=== PATIENT | male | born 1955 | race Two or more races ===

== ENCOUNTER 2023-01-22 03:39 | Emergency (ER) | payer OTHER ==
[~2023-01-22] VITALS: Ht 165.1 cm; Wt 80.9 kg
[2023-01-22 04:48] VITALS: BP 159/95
[2023-01-22 05:43] LABS: Basophils # (auto) 0.1 10 ^3/uL (0-0.2); Basophils % (auto) 0.8 % (0.0-2.0); Eosinophils # (auto) 0.4 10 ^3/uL (0-0.8); Eosinophils % (auto) 5.8 % (0.0-7.0); Hematocrit 41.4 % (41.0-53.0); Hemoglobin 14.3 g/dL (13.5-17.5); Lymphocytes # (auto) 1.7 10 ^3/uL (0.4-5.4); Lymphocytes % (auto) 27.2 % (10.0-50.0); Mean Corpuscular Hemoglobin 30.8 pg (28.0-32.0); Mean Corpuscular Hgb Conc. 34.5 g/dL (32.0-36.0); Mean Corpuscular Volume 89.4 fL (80.0-100.0); Monocytes # (auto) 0.4 10 ^3/uL (0-1.3); Monocytes % (auto) 6.4 % (0.0-12.0); Neutrophils # (auto) 3.8 10 ^3/uL (1.6-8.6); Neutrophils % (auto) 59.8 % (37.0-80.0); Red Blood Cells 4.63 10^6/uL (4.5-5.90); Red Cell Distribution Width 13.1 % (11.8-14.3); White Blood Cell 6.3 10^3/uL (4.4-10.8)
[2023-01-22 06:10] LABS: Albumin 2.9 g/dL (3.4-5.0); BUN/Creatinine Ratio 17.4; Calcium 8.3 mg/dL (8.5-10.1)
[2023-01-22 06:13] LABS: Bilirubin, Total 0.4 mg/dL (0.2-1.0); Total Protein 6.2 g/dL (6.4-8.2)
[2023-01-22 06:40] LABS: Urine Bacteria NONE SEEN /hpf (None Seen); Urine Blood TRACE /uL (Negative); Urine Specific Gravity 1.021 (1.001-1.035); Urine WBC 2 /hpf (0 - 3)
[2023-01-22] MEDS ORDERED: AZIT1POW PO (08:28)
== END 2023-01-22 08:27 | disposition home or self-care (01) ==
LOC: ER 03:39
DX: M54.6 Pain in thoracic spine (principal); R35.0 Frequency of micturition; E11.65 Type 2 diabetes mellitus with hyperglycemia; J20.9 Acute bronchitis, unspecified; E78.5 Hyperlipidemia, unspecified; I10 Essential (primary) hypertension; Z90.49 Acquired absence of other specified parts of digestive tract
CPT/HCPCS: 36415; 71046; 80053; 81001; 83880; 84484; 85025; 93005

== ENCOUNTER 2023-02-02 13:12 | Inpatient (IN) | payer OTHER ==
[~2023-02-02] VITALS: Ht 165.1 cm; Wt 90.6 kg
[~2023-02-02 13:12] MED LIST: AZIT1POW PO
[2023-02-02] MEDS ORDERED: cloNIDine HCL 0.1 MG TAB PO ONE (13:45)
[2023-02-02 14:13] LABS: Basophils # (auto) 0 10 ^3/uL (0-0.2); Basophils % (auto) 0.7 % (0.0-2.0); Eosinophils # (auto) 0.2 10 ^3/uL (0-0.8); Eosinophils % (auto) 3.5 % (0.0-7.0); Hemoglobin 14.6 g/dL (13.5-17.5); Lymphocytes # (auto) 1.4 10 ^3/uL (0.4-5.4); Lymphocytes % (auto) 23.1 % (10.0-50.0); Mean Corpuscular Hemoglobin 30.7 pg (28.0-32.0); Mean Corpuscular Hgb Conc. 34.8 g/dL (32.0-36.0); Mean Corpuscular Volume 88.2 fL (80.0-100.0); Monocytes # (auto) 0.3 10 ^3/uL (0-1.3); Monocytes % (auto) 4.6 % (0.0-12.0); Neutrophils # (auto) 4.3 10 ^3/uL (1.6-8.6); Neutrophils % (auto) 68.1 % (37.0-80.0); Nucleated Red Blood Cells % 0.4 %; Red Blood Cells 4.76 10^6/uL (4.5-5.90); Red Cell Distribution Width 13.1 % (11.8-14.3); White Blood Cell 6.3 10^3/uL (4.4-10.8)
[2023-02-02 14:37] LABS: BUN/Creatinine Ratio 14.6; Bilirubin, Total 0.4 mg/dL (0.2-1.0); Calcium 8.2 mg/dL (8.5-10.1)
[2023-02-02] MEDS ORDERED: MORPHINE SULFATE INJ 2 MG/ml SYRG IV PRN (15:15)
[2023-02-02] MEDS ORDERED: SODIUM CHLORIDE 0.9% 1,000 ML IV SCH (15:15)
[2023-02-02] MEDS ORDERED: NITROGLYCERIN 0.4 MG SL TAB SL PRN (15:15)
[2023-02-02] MEDS ORDERED: ACETAMINOPHEN 325 MG TAB PO PRN (15:15)
[2023-02-02] MEDS ORDERED: PANTOPRAZOLE 40 MG/10 ML VIAL INJ IV ONE (15:30)
[2023-02-02] MEDS ORDERED: FUROSEMIDE 20 MG/2 ML VIAL IV ONE (15:30)
[2023-02-02] MEDS ORDERED: DEXTROSE (50%) 50ML SYRG IV PRN (15:30)
[2023-02-02] MEDS ORDERED: TERB250T66 PO (15:33)
[2023-02-02] MEDS ORDERED: FENO145T27 PO (15:33)
[2023-02-02] MEDS ORDERED: BACL20TA PO (15:33)
[2023-02-02] MEDS ORDERED: AZIT250T9 PO (15:33)
[2023-02-02] MEDS ORDERED: PREG-111 PO (15:33)
[2023-02-02] MEDS ORDERED: LISI40TA11 (15:33)
[2023-02-02] MEDS ORDERED: AMLO-496 PO (15:33)
[2023-02-02] MEDS ORDERED: METF-372 PO (15:33)
[2023-02-02] MEDS ORDERED: CHOL1CAP21 PO (15:33)
[2023-02-02 16:05] LABS: Cholesterol 226 mg/dL (< 200)
[2023-02-02 16:08] LABS: HDL Cholesterol 76 mg/dL (40-59); LDL Cholesterol 120 mg/dL (< 100); Triglycerides 345 mg/dL (< 150)
[2023-02-02] MEDS ORDERED: Cholecalciferol (Vitamin D3) 1 CAP PO SCH (17:00)
[2023-02-02] MEDS: ACCU-CHEK COMFORT CURVE STRIP VI SCH ×2 (17:18→22:00)
[2023-02-02] MEDS: InsuLIN REG 1unit/0.01ml Soln (100units/ml) SC SCH ×2 (17:19→22:50)
[2023-02-02] MEDS: PREGABALIN CAPSULE 75 MG CAP PO SCH (22:45)
[2023-02-02] MEDS: hydrALAZINE HCL 20 MG/ML VL IV PRN (22:45)
[2023-02-02] MEDS: HEPARIN SODIUM (PORCINE) 5000 UNITS/ML 1ML VIAL SC SCH (22:49)
[2023-02-03 00:53] LABS: Urine Bacteria FEW /hpf (None Seen); Urine Blood Negative /uL (Negative); Urine Hyaline Cast FEW /lpf (0 - 2); Urine Mucus FEW (None Seen); Urine Sperm PRESENT /hpf (None Seen); Urine WBC 2 /hpf (0 - 3)
[2023-02-03 06:32] LABS: Basophils # (auto) 0.1 10 ^3/uL (0-0.2); Eosinophils # (auto) 0.4 10 ^3/uL (0-0.8); Eosinophils % (auto) 7.1 % (0.0-7.0); Hematocrit 39.4 % (41.0-53.0); Hemoglobin 13.5 g/dL (13.5-17.5); Lymphocytes # (auto) 1.7 10 ^3/uL (0.4-5.4); Lymphocytes % (auto) 33.3 % (10.0-50.0); Mean Corpuscular Hemoglobin 30.5 pg (28.0-32.0); Mean Corpuscular Hgb Conc. 34.4 g/dL (32.0-36.0); Mean Corpuscular Volume 88.8 fL (80.0-100.0); Monocytes # (auto) 0.4 10 ^3/uL (0-1.3); Monocytes % (auto) 7.5 % (0.0-12.0); Neutrophils # (auto) 2.7 10 ^3/uL (1.6-8.6); Neutrophils % (auto) 51.1 % (37.0-80.0); Nucleated Red Blood Cells % 0.2 %; Red Blood Cells 4.44 10^6/uL (4.5-5.90); Red Cell Distribution Width 13.1 % (11.8-14.3); White Blood Cell 5.2 10^3/uL (4.4-10.8)
[2023-02-03] MEDS: ACCU-CHEK COMFORT CURVE STRIP VI SCH ×4 (06:50→21:56)
[2023-02-03] MEDS: InsuLIN REG 1unit/0.01ml Soln (100units/ml) SC SCH ×4 (06:50→21:57)
[2023-02-03 06:59] LABS: Albumin 2.7 g/dL (3.4-5.0); Calcium 7.8 mg/dL (8.5-10.1); Potassium 3.5 mmol/L (3.5-5.1)
[2023-02-03 07:04] LABS: Bilirubin, Total 0.4 mg/dL (0.2-1.0); Total Protein 5.4 g/dL (6.4-8.2)
[2023-02-03] MEDS: PREGABALIN CAPSULE 75 MG CAP PO SCH ×2 (09:33→21:52)
[2023-02-03] MEDS: PANTOPRAZOLE 40 MG/10 ML VIAL INJ IV SCH (09:34)
[2023-02-03] MEDS: amLODIPine BESYLATE 5 MG TAB PO SCH (09:34)
[2023-02-03] MEDS: HEPARIN SODIUM (PORCINE) 5000 UNITS/ML 1ML VIAL SC SCH ×2 (09:35→21:56)
[2023-02-03] MEDS: FENOFIBRATE PO SCH (09:35)
[2023-02-03] MEDS ORDERED: ENOXAPARIN SOD 40 MG/0.4 ML SYRINGE SC SCH (10:00)
[2023-02-03 13:24] LABS: Protein, Urine 401.7 mg/dL (0.0-11.9)
[2023-02-03] MEDS: CLINDAMYCIN 600MG IV 50 ML IV SCH ×2 (14:33→21:57)
[2023-02-03 15:30] VITALS: BP 169/89
[2023-02-03 15:39] VITALS: BP 169/89
[2023-02-03] MEDS: hydrALAZINE HCL 20 MG/ML VL IV PRN (16:30)
[2023-02-03] MEDS: HYDROcodone-ACET 5/325MG TAB PO PRN (16:33)
[2023-02-03 22:00] VITALS: BP 161/83
[2023-02-04 05:00] VITALS: BP 166/90
[2023-02-04] MEDS: CLINDAMYCIN 600MG IV 50 ML IV SCH ×3 (05:42→21:57)
[2023-02-04] MEDS: HYDROcodone-ACET 5/325MG TAB PO PRN ×2 (06:06→19:55)
[2023-02-04] MEDS: InsuLIN REG 1unit/0.01ml Soln (100units/ml) SC SCH ×4 (06:42→22:10)
[2023-02-04] MEDS: ACCU-CHEK COMFORT CURVE STRIP VI SCH ×4 (06:42→21:58)
[2023-02-04 09:00] VITALS: BP 132/90
[2023-02-04] MEDS: FENOFIBRATE PO SCH (10:00)
[2023-02-04] MEDS: PANTOPRAZOLE 40 MG/10 ML VIAL INJ IV SCH (10:32)
[2023-02-04] MEDS: amLODIPine BESYLATE 5 MG TAB PO SCH (10:33)
[2023-02-04] MEDS: PREGABALIN CAPSULE 75 MG CAP PO SCH ×2 (10:34→21:57)
[2023-02-04] MEDS: HEPARIN SODIUM (PORCINE) 5000 UNITS/ML 1ML VIAL SC SCH ×2 (10:35→22:10)
[2023-02-04] MEDS: cefTRIAXone 1GM/50ML D5W 50 ML IV SCH (10:36)
[2023-02-04 11:17] LABS: Calcium 8.2 mg/dL (8.5-10.1); Potassium 3.9 mmol/L (3.5-5.1)
[2023-02-04 11:19] LABS: BUN/Creatinine Ratio 19.8
[2023-02-04 11:54] LABS: Hepatitis C Antibody Negative (Negative)
[2023-02-04 13:00] VITALS: BP 142/85
[2023-02-04] MEDS ORDERED: FUROSEMIDE 40 MG/4 ML VIAL IV ONE (13:45)
[2023-02-04] MEDS ORDERED: DEXTROSE (50%) 50ML SYRG IV PRN (13:45)
[2023-02-04] MEDS: GENTAMICIN OPTH sol 0.3% 5ml EACHEYE SCH ×3 (14:00→21:57)
[2023-02-04 16:23] VITALS: BP 145/85
[2023-02-04] MEDS: hydrALAZINE HCL 20 MG/ML VL IV PRN (21:58)
[2023-02-04 22:00] VITALS: BP 161/92
[2023-02-04] MEDS ORDERED: INSULIN LANTUS (GLARGINE) 1 /0.01ml (100units/ml) SC SCH (22:00)
[2023-02-05 05:00] VITALS: BP 174/91
[2023-02-05] MEDS: GENTAMICIN OPTH sol 0.3% 5ml EACHEYE SCH ×5 (05:48→22:06)
[2023-02-05] MEDS: CLINDAMYCIN 600MG IV 50 ML IV SCH ×3 (05:48→22:16)
[2023-02-05] MEDS: ACCU-CHEK COMFORT CURVE STRIP VI SCH ×4 (05:49→21:46)
[2023-02-05] MEDS: hydrALAZINE HCL 20 MG/ML VL IV PRN (05:54)
[2023-02-05] MEDS: InsuLIN REG 1unit/0.01ml Soln (100units/ml) SC SCH ×5 (06:01→21:52)
[2023-02-05 09:00] VITALS: BP 143/75
[2023-02-05] MEDS: PREGABALIN CAPSULE 75 MG CAP PO SCH ×2 (09:37→21:55)
[2023-02-05] MEDS: FUROSEMIDE 40 MG/4 ML VIAL IV SCH (09:37)
[2023-02-05] MEDS: cefTRIAXone 1GM/50ML D5W 50 ML IV SCH (09:37)
[2023-02-05] MEDS: FENOFIBRATE PO SCH (09:38)
[2023-02-05] MEDS: amLODIPine BESYLATE 5 MG TAB PO SCH (09:38)
[2023-02-05] MEDS: HEPARIN SODIUM (PORCINE) 5000 UNITS/ML 1ML VIAL SC SCH ×2 (09:47→21:53)
[2023-02-05] MEDS ORDERED: LACTULOSE 20Gm/30ML SOLN PO ONE (10:30)
[2023-02-05] MEDS: HYDROcodone-ACET 5/325MG TAB PO PRN ×2 (11:05→23:10)
[2023-02-05] MEDS: INSULIN LANTUS (GLARGINE) 1 /0.01ml (100units/ml) SC SCH ×2 (11:58→21:52)
[2023-02-05 13:00] VITALS: BP 150/85
[2023-02-05 16:29] VITALS: BP 131/80
[2023-02-05] MEDS ORDERED: INSU100I47 SC (17:20)
[2023-02-05] MEDS ORDERED: INSU1.2I SC (17:20)
[2023-02-05 22:00] VITALS: BP 154/76
[2023-02-05] MEDS ORDERED: ATORVASTATIN 20 MG TAB PO SCH (22:00)
[2023-02-05 22:15] VITALS: BP 139/93
[2023-02-06 05:24] VITALS: BP 162/91
[2023-02-06] MEDS: CLINDAMYCIN 600MG IV 50 ML IV SCH (05:42)
[2023-02-06] MEDS: GENTAMICIN OPTH sol 0.3% 5ml EACHEYE SCH ×3 (05:42→13:45)
[2023-02-06] MEDS: hydrALAZINE HCL 20 MG/ML VL IV PRN (06:00)
[2023-02-06] MEDS: ACCU-CHEK COMFORT CURVE STRIP VI SCH ×2 (06:06→11:39)
[2023-02-06] MEDS: InsuLIN REG 1unit/0.01ml Soln (100units/ml) SC SCH ×2 (06:08→11:43)
[2023-02-06 08:15] VITALS: BP 125/69
[2023-02-06] MEDS: cefTRIAXone 1GM/50ML D5W 50 ML IV SCH (08:40)
[2023-02-06 09:00] VITALS: BP 125/69
[2023-02-06] MEDS ORDERED: DAPA1TAB4 PO (09:23)
[2023-02-06] MEDS ORDERED: CLIN300C8 PO (09:23)
[2023-02-06] MEDS: FUROSEMIDE 40 MG/4 ML VIAL IV SCH (10:06)
[2023-02-06] MEDS: PREGABALIN CAPSULE 75 MG CAP PO SCH (10:06)
[2023-02-06] MEDS: amLODIPine BESYLATE 5 MG TAB PO SCH (10:06)
[2023-02-06] MEDS: HEPARIN SODIUM (PORCINE) 5000 UNITS/ML 1ML VIAL SC SCH (10:09)
[2023-02-06 12:28] VITALS: BP 138/72
== END 2023-02-06 13:55 | disposition home or self-care (01) | DRG 638 ==
LOC: EDBD 13:12 → ER 13:12 → TELE 15:17 → TELE-EAST 02-03 15:25
PROVIDERS: ADMIT Nurse Practitioner Family; ATTEND Family Medicine
DX: E11.65 Type 2 diabetes mellitus with hyperglycemia (principal); E44.0 Moderate protein-calorie malnutrition; N17.9 Acute kidney failure, unspecified; K04.7 Periapical abscess without sinus; E66.01 Morbid (severe) obesity due to excess calories; E83.51 Hypocalcemia; I10 Essential (primary) hypertension; E78.00 Pure hypercholesterolemia, unspecified; R74.8 Abnormal levels of other serum enzymes; R51.9 Headache, unspecified; Z20.822 Contact with and (suspected) exposure to COVID-19; H10.9 Unspecified conjunctivitis; E11.21 Type 2 diabetes mellitus with diabetic nephropathy; K59.00 Constipation, unspecified; Z68.31 Body mass index [BMI] 31.0-31.9, adult; Z90.49 Acquired absence of other specified parts of digestive tract; I16.0 Hypertensive urgency
CPT/HCPCS: 36415; 70450; 71045; 74176; 76775; 80048; 80053; 80061; 81001; 82570; 82962; 83036; 83880; 84156; 84300; 84443; 84484; 85025; 86803; 87340; 87426; 93306; 93886; 96374; 96375; C9113; G0378; J0696; J1815; J3490

== ENCOUNTER 2023-02-09 19:57 | Emergency (ER) | payer OTHER ==
[~2023-02-09] VITALS: Ht 165.1 cm; Wt 84.0 kg
[~2023-02-09 19:57] MED LIST changes: +AMLO-496 PO; +AZIT250T9 PO; +BACL20TA PO; +CHOL1CAP21 PO; +CLIN300C8 PO; +DAPA1TAB4 PO; +FENO145T27 PO; +INSU1.2I SC; +INSU100I47 SC; +LISI40TA11; +METF-372 PO; +PREG-111 PO; +TERB250T66 PO
[2023-02-09] MEDS ORDERED: ONDANSETRON ODT 4 MG TAB PO ONE (20:45)
[2023-02-09 20:58] LABS: Basophils # (auto) 0 10 ^3/uL (0-0.2); Basophils % (auto) 0.6 % (0.0-2.0); Eosinophils # (auto) 0 10 ^3/uL (0-0.8); Eosinophils % (auto) 0.6 % (0.0-7.0); Hematocrit 42.2 % (41.0-53.0); Hemoglobin 14.6 g/dL (13.5-17.5); Lymphocytes # (auto) 1.1 10 ^3/uL (0.4-5.4); Lymphocytes % (auto) 17.5 % (10.0-50.0); Mean Corpuscular Hemoglobin 30.6 pg (28.0-32.0); Mean Corpuscular Hgb Conc. 34.6 g/dL (32.0-36.0); Mean Corpuscular Volume 88.4 fL (80.0-100.0); Monocytes # (auto) 0.3 10 ^3/uL (0-1.3); Monocytes % (auto) 4.1 % (0.0-12.0); Neutrophils # (auto) 4.7 10 ^3/uL (1.6-8.6); Neutrophils % (auto) 77.2 % (37.0-80.0); Nucleated Red Blood Cells % 0.1 %; Red Blood Cells 4.77 10^6/uL (4.5-5.90); Red Cell Distribution Width 13.5 % (11.8-14.3); White Blood Cell 6.1 10^3/uL (4.4-10.8)
[2023-02-09 21:26] LABS: Albumin 2.9 g/dL (3.4-5.0); Calcium 8.6 mg/dL (8.5-10.1); Potassium 3.6 mmol/L (3.5-5.1)
[2023-02-09 21:29] LABS: BUN/Creatinine Ratio 18.6; Bilirubin, Total 0.5 mg/dL (0.2-1.0); Total Protein 6.9 g/dL (6.4-8.2)
[2023-02-09 22:48] LABS: Urine Bacteria NONE SEEN /hpf (None Seen); Urine Blood 1+ /uL (Negative); Urine Specific Gravity 1.021 (1.001-1.035); Urine WBC 1 /hpf (0 - 3)
[2023-02-09] MEDS ORDERED: amLODIPine BESYLATE 5 MG TAB PO ONE (23:30)
[2023-02-10] MEDS ORDERED: LABETALOL HCL 200 MG TAB PO ONE
[2023-02-10] MEDS ORDERED: AMLO-496 PO (03:09)
[2023-02-10 03:18] VITALS: BP 127/63
== END 2023-02-10 03:19 | disposition home or self-care (01) ==
LOC: ER 19:57
DX: I16.0 Hypertensive urgency (principal); I10 Essential (primary) hypertension; R11.2 Nausea with vomiting, unspecified; E11.9 Type 2 diabetes mellitus without complications; E78.5 Hyperlipidemia, unspecified; Z88.1 Allergy status to other antibiotic agents; Z90.49 Acquired absence of other specified parts of digestive tract; Z88.8 Allergy status to other drugs, medicaments and biological substances
CPT/HCPCS: 36415; 71045; 74176; 80053; 81001; 82962; 84484; 85025; 93005; 99284; Q0162

== ENCOUNTER 2023-10-18 17:08 | Inpatient (IN) | payer OTHER, MEDICAID ==
[~2023-10-18] VITALS: Ht 165.1 cm; Wt 91.2 kg
[~2023-10-18 17:08] MED LIST changes: -AMLO-496 PO; +AMLO1TAB23 PO; +AZIT-43 PO; -AZIT250T9 PO; +CLIN300C70 PO; -CLIN300C8 PO; -LISI40TA11; +LISI40TA16; -TERB250T66 PO; +TERB250T74 PO
[2023-10-18 18:13] LABS: Basophils # (auto) 0.1 10 ^3/uL (0-0.2); Basophils % (auto) 0.8 % (0.0-2.0); Eosinophils # (auto) 0.4 10 ^3/uL (0-0.8); Eosinophils % (auto) 6.3 % (0.0-7.0); Hematocrit 39.2 % (41.0-53.0); Hemoglobin 12.8 g/dL (13.5-17.5); Lymphocytes # (auto) 1.6 10 ^3/uL (0.4-5.4); Lymphocytes % (auto) 23.6 % (10.0-50.0); Mean Corpuscular Hemoglobin 30.1 pg (28.0-32.0); Mean Corpuscular Hgb Conc. 32.6 g/dL (32.0-36.0); Mean Corpuscular Volume 92.2 fL (80.0-100.0); Monocytes # (auto) 0.5 10 ^3/uL (0-1.3); Monocytes % (auto) 7.5 % (0.0-12.0); Neutrophils # (auto) 4.2 10 ^3/uL (1.6-8.6); Neutrophils % (auto) 61.8 % (37.0-80.0); Nucleated Red Blood Cells % 0.1 %; Red Blood Cells 4.25 10^6/uL (4.5-5.90); Red Cell Distribution Width 13.8 % (11.8-14.3); White Blood Cell 6.7 10^3/uL (4.4-10.8)
[2023-10-18 18:28] VITALS: PULSE 89; RESP 22; O2SAT 97
[2023-10-18] MEDS ORDERED: cloNIDine HCL 0.1 MG TAB PO ONE (18:30)
[2023-10-18] MEDS ORDERED: FUROSEMIDE 100 MG/10ML VIAL IV ONE (18:30)
[2023-10-18 18:51] LABS: Alanine Aminotransferase 21 U/L (7-40); Albumin 3.5 g/dL (3.2-4.8); Alkaline Phosphatase 115 U/L (46-116); Anion Gap 7 (5-15); Aspartate Aminotransferase 23 U/L (13-40); BUN/Creatinine Ratio 14.4 (10.0-20.0); Bilirubin, Total 0.7 mg/dL (0.2-1.0); Blood Urea Nitrogen 30 mg/dL (9-23); Calcium 8.2 mg/dL (8.7-10.4); Carbon Dioxide 25 mmol/L (20-30); Chloride 112 mmol/L (98-107); Glucose 164 mg/dL (74-106); Lipase 19 U/L (12-53); Magnesium 2.1 mg/dL (1.6-2.6); Potassium 4.3 mmol/L (3.5-5.1); Sodium 144 mmol/L (136-145); Total Protein 5.7 g/dL (5.7-8.2)
[2023-10-18 19:39] LABS: Urine Bacteria NONE SEEN /hpf (None Seen); Urine Blood 1+ /uL (Negative); Urine Clarity Clear (Clear); Urine Color Colorless (Yellow); Urine Protein, UAD 3+ (Negative); Urine Specific Gravity 1.012 (1.001-1.035); Urine Urobilinogen Normal (Negative); Urine WBC 1 /hpf (0 - 3)
[2023-10-18 19:47] LABS: Amphetamine Screen, Urine Neg (NEGATIVE); Barbiturate Scree,Urine Neg (NEGATIVE); Benzodiazephine Screen, Urine Neg (NEGATIVE)
[2023-10-18 19:48] LABS: Cannabinoid Screen, Urine Neg (NEGATIVE); Cocaine Screen, Urine Neg (NEGATIVE); Opiate Scree,Urine Neg (NEGATIVE); Phencyclidine Screen, Urine Neg (NEGATIVE)
[2023-10-18] MEDS ORDERED: ACETAMINOPHEN 325 MG TAB PO PRN (20:15)
[2023-10-18] MEDS ORDERED: NITROGLYCERIN 0.4 MG SL TAB SL PRN (20:15)
[2023-10-18] MEDS ORDERED: ONDANSETRON HCL 4 MG/2 ML VIAL IV PRN (20:15)
[2023-10-18] MEDS ORDERED: ENOXAPARIN SOD 80 MG/0.8ML SYRINGE SC ONE (20:15)
[2023-10-18] MEDS ORDERED: MORPHINE SULFATE INJ 2 MG/ml SYRG IV PRN (20:15)
[2023-10-18] MEDS ORDERED: hydrALAZINE HCL 10 MG TAB PO PRN (20:15)
[2023-10-18] MEDS ORDERED: DEXTROSE (50%) 50ML SYRG IV PRN (20:30)
[2023-10-18 20:40] VITALS: PULSE 83; RESP 17; O2SAT 92
[2023-10-18] MEDS: ASPirin 81 mg TAB PO SCH (21:11)
[2023-10-18] MEDS: amLODIPine BESYLATE 5 MG TAB PO SCH (21:12)
[2023-10-18 21:29] LABS: COVID19 ANTIGEN SOFIA FIA NEGATIVE (NEGATIVE)
[2023-10-18 21:30] LABS: Rapid Influenza A Negative (Negative); Rapid Influenza B Negative (Negative)
[2023-10-18] MEDS: ACCU-CHEK COMFORT CURVE STRIP VI SCH (23:22)
[2023-10-18] MEDS: FUROSEMIDE 40 MG/4 ML VIAL IV SCH (23:28)
[2023-10-18] MEDS: InsuLIN REG 1unit/0.01ml Soln (100units/ml) SC SCH (23:28)
[2023-10-18] MEDS: ATORVASTATIN 20 MG TAB PO SCH (23:28)
[2023-10-19] MEDS ORDERED: hydrALAZINE HCL 20 MG/ML VL IV PRN (03:00)
[2023-10-19] MEDS ORDERED: cloNIDine HCL 0.1 MG TAB PO PRN (03:15)
[2023-10-19 05:50] LABS: Chloride 108 mmol/L (98-107); Potassium 3.8 mmol/L (3.5-5.1); Sodium 142 mmol/L (136-145)
[2023-10-19 05:51] LABS: Anion Gap 5 (5-15); Calcium 8.9 mg/dL (8.7-10.4); Carbon Dioxide 29 mmol/L (20-30)
[2023-10-19 05:56] LABS: Blood Urea Nitrogen 25 mg/dL (9-23); Glucose 153 mg/dL (74-106)
[2023-10-19] MEDS: ACCU-CHEK COMFORT CURVE STRIP VI SCH ×4 (06:52→22:00)
[2023-10-19] MEDS: InsuLIN REG 1unit/0.01ml Soln (100units/ml) SC SCH ×4 (06:56→23:18)
[2023-10-19 08:00] VITALS: PULSE 90; RESP 19; O2SAT 98
[2023-10-19] MEDS: amLODIPine BESYLATE 5 MG TAB PO SCH (10:10)
[2023-10-19] MEDS: FUROSEMIDE 40 MG/4 ML VIAL IV SCH ×2 (10:10→23:23)
[2023-10-19] MEDS: ASPirin 81 mg TAB PO SCH (10:10)
[2023-10-19 12:29] LABS: Protein, Urine 57.8 mg/dL (0.0-11.9)
[2023-10-19 12:32] LABS: Creatinine, Urine 20.1 mg/dL (30.0-125.0); Urine Protein/Creatinine Ratio 2.88
[2023-10-19 17:18] LABS: Triglycerides 128 mg/dL (< 150)
[2023-10-19 17:19] LABS: LDL Cholesterol 68 mg/dL (< 100)
[2023-10-19 17:20] LABS: HDL Cholesterol 65 mg/dL (40-59)
[2023-10-19 17:21] LABS: Cholesterol 148 mg/dL (< 200)
[2023-10-19 17:45] VITALS: BP 138/74; PULSE 88; O2SAT 97
[2023-10-19 18:14] VITALS: BP 138/74; PULSE 84; RESP 15; TEMP 98.4; O2SAT 97
[2023-10-19 19:30] VITALS: PULSE 82; RESP 12; O2SAT 93
[2023-10-19 20:50] VITALS: BP 162/85; PULSE 84; O2SAT 94
[2023-10-19] MEDS ORDERED: DOCUSATE SOD 100 MG CAP PO PRN (22:00)
[2023-10-19 22:28] VITALS: BP 160/78; PULSE 86; O2SAT 96
[2023-10-19] MEDS: CARVEDILOL 12.5 MG TAB PO SCH (23:23)
[2023-10-19] MEDS: ATORVASTATIN 20 MG TAB PO SCH (23:23)
[2023-10-20] VITALS (9 sets, daily range): BP systolic 118–149; BP diastolic 63–83; PULSE 67–85; RESP 16–19; TEMP 97.8–98.8; O2SAT 3–98
[2023-10-20 01:59] LABS: Base Excess 2.6 mmol/L (-2.0-2.0)
[2023-10-20 06:38] LABS: Chloride 105 mmol/L (98-107); Potassium 3.8 mmol/L (3.5-5.1); Sodium 140 mmol/L (136-145)
[2023-10-20 06:39] LABS: Anion Gap 5 (5-15); Carbon Dioxide 30 mmol/L (20-30)
[2023-10-20 06:40] LABS: Calcium 8.4 mg/dL (8.7-10.4)
[2023-10-20] MEDS: ACCU-CHEK COMFORT CURVE STRIP VI SCH ×4 (06:40→22:25)
[2023-10-20 06:45] LABS: BUN/Creatinine Ratio 11.6 (10.0-20.0); Blood Urea Nitrogen 29 mg/dL (9-23); Glucose 140 mg/dL (74-106)
[2023-10-20] MEDS: InsuLIN REG 1unit/0.01ml Soln (100units/ml) SC SCH ×4 (06:45→22:35)
[2023-10-20] MEDS ORDERED: ATOR20TA50 PO (09:26)
[2023-10-20] MEDS ORDERED: LATA0.008 EACHEYE (09:26)
[2023-10-20] MEDS ORDERED: TAMS0.4C36 PO (09:26)
[2023-10-20] MEDS ORDERED: BRIM0.2S17 EACHEYE (09:26)
[2023-10-20] MEDS: ASPirin 81 mg TAB PO SCH (10:21)
[2023-10-20] MEDS: FUROSEMIDE 40 MG/4 ML VIAL IV SCH ×2 (10:30→22:23)
[2023-10-20] MEDS: CARVEDILOL 12.5 MG TAB PO SCH ×2 (10:30→22:25)
[2023-10-20] MEDS ORDERED: POTASSIUM CHL 20 Meq TABLET PO ONE (11:15)
[2023-10-20] MEDS: TAMSULOSIN HYDROCHLORIDE 0.4 MG CAP PO SCH (18:00)
[2023-10-20] MEDS ORDERED: VANCOMYCIN PER PHARMACY 0 MG IV SCH (21:00)
[2023-10-20] MEDS ORDERED: VANCOMYCIN 1GM/250ML 250 ML IV SCH (21:15)
[2023-10-20] MEDS: ATORVASTATIN 20 MG TAB PO SCH (22:24)
[2023-10-20] MEDS: HEPARIN SODIUM (PORCINE) 5000 UNITS/ML 1ML VIAL SC SCH (22:34)
[2023-10-21] VITALS (9 sets, daily range): BP systolic 122–147; BP diastolic 63–76; PULSE 70–79; RESP 18–20; TEMP 97.6–98.1; O2SAT 91–96
[2023-10-21] MEDS: HYDROcodone-ACET 5/325MG TAB PO PRN (04:26)
[2023-10-21 06:21] LABS: Chloride 104 mmol/L (98-107); Potassium 3.9 mmol/L (3.5-5.1); Sodium 139 mmol/L (136-145)
[2023-10-21 06:22] LABS: Anion Gap 5 (5-15); Calcium 8.2 mg/dL (8.7-10.4); Carbon Dioxide 30 mmol/L (20-30)
[2023-10-21 06:27] LABS: BUN/Creatinine Ratio 12.7 (10.0-20.0); Blood Urea Nitrogen 35 mg/dL (9-23); Glucose 153 mg/dL (74-106)
[2023-10-21] MEDS: ACCU-CHEK COMFORT CURVE STRIP VI SCH ×4 (06:41→22:00)
[2023-10-21] MEDS: InsuLIN REG 1unit/0.01ml Soln (100units/ml) SC SCH ×4 (06:44→22:00)
[2023-10-21] MEDS ORDERED: ADENOSINE 75 MG in GIVE UN-DILUTED 0 ML IV STA (07:41)
[2023-10-21] MEDS: ASPirin 81 mg TAB PO SCH (12:02)
[2023-10-21] MEDS: FUROSEMIDE 40 MG/4 ML VIAL IV SCH (12:02)
[2023-10-21] MEDS: CARVEDILOL 12.5 MG TAB PO SCH ×2 (12:03→22:00)
[2023-10-21] MEDS: HEPARIN SODIUM (PORCINE) 5000 UNITS/ML 1ML VIAL SC SCH ×2 (12:11→22:00)
[2023-10-21] MEDS ORDERED: VANCOMYCIN 1GM/250ML 250 ML IV ONE (17:00)
[2023-10-21] MEDS: TAMSULOSIN HYDROCHLORIDE 0.4 MG CAP PO SCH (17:57)
[2023-10-21] MEDS ORDERED: cefTRIAXone 1GM/50ML D5W 50 ML IV ONE (21:00)
[2023-10-21] MEDS: ATORVASTATIN 20 MG TAB PO SCH (22:00)
[2023-10-22] VITALS (8 sets, daily range): BP systolic 126–137; BP diastolic 66–77; PULSE 71–77; RESP 18–20; TEMP 97.8–98.5; O2SAT 90–95
[2023-10-22] MEDS: InsuLIN REG 1unit/0.01ml Soln (100units/ml) SC SCH ×4 (06:08→22:23)
[2023-10-22] MEDS: ACCU-CHEK COMFORT CURVE STRIP VI SCH ×4 (06:16→22:25)
[2023-10-22] MEDS: cefTRIAXone 1GM/50ML D5W 50 ML IV SCH (09:12)
[2023-10-22] MEDS: ASPirin 81 mg TAB PO SCH (09:13)
[2023-10-22] MEDS: CARVEDILOL 12.5 MG TAB PO SCH ×2 (09:17→22:25)
[2023-10-22] MEDS: HEPARIN SODIUM (PORCINE) 5000 UNITS/ML 1ML VIAL SC SCH ×2 (09:31→22:22)
[2023-10-22] MEDS: HYDROcodone-ACET 5/325MG TAB PO PRN (09:35)
[2023-10-22] MEDS: TAMSULOSIN HYDROCHLORIDE 0.4 MG CAP PO SCH (16:38)
[2023-10-22] MEDS ORDERED: VANCOMYCIN 500 MG in D5W 5% 100 ML IV ONE (17:00)
[2023-10-22] MEDS: ATORVASTATIN 20 MG TAB PO SCH (22:24)
[2023-10-23] VITALS (12 sets, daily range): BP systolic 108–147; BP diastolic 54–84; PULSE 65–73; RESP 15–20; TEMP 97.4–98.1; O2SAT 93–97
[2023-10-23] MEDS: HYDROcodone-ACET 5/325MG TAB PO PRN (02:34)
[2023-10-23] MEDS: ACCU-CHEK COMFORT CURVE STRIP VI SCH ×4 (06:40→22:12)
[2023-10-23] MEDS: InsuLIN REG 1unit/0.01ml Soln (100units/ml) SC SCH ×4 (06:40→22:12)
[2023-10-23] MEDS: cefTRIAXone 1GM/50ML D5W 50 ML IV SCH (08:21)
[2023-10-23] MEDS: ASPirin 81 mg TAB PO SCH (08:21)
[2023-10-23] MEDS: CARVEDILOL 12.5 MG TAB PO SCH ×2 (08:22→22:10)
[2023-10-23] MEDS: HEPARIN SODIUM (PORCINE) 5000 UNITS/ML 1ML VIAL SC SCH ×2 (08:33→22:17)
[2023-10-23] MEDS ORDERED: SODIUM CHLORIDE 0.9% 1,000 ML IV ONE (15:30)
[2023-10-23] MEDS ORDERED: ACETYLCYSTEINE ORAL for CIN 20%(200MG/ML) 4ML PO ONE (15:30)
[2023-10-23] MEDS ORDERED: IOHEXOL 350 MG/ML 100ML IJ ONE (16:15)
[2023-10-23] MEDS ORDERED: fentaNYL CITRATE 100 MCG/2 ML VL ONE (16:35)
[2023-10-23] MEDS ORDERED: MIDAZOLAM HCL 2MG/2ML 2ml VIAL (1mg/ml) ONE (16:35)
[2023-10-23] MEDS ORDERED: HEPARIN SODIUM (PORCINE) 5000 UNITS/ML 1ML VIAL ONE (16:36)
[2023-10-23] MEDS ORDERED: VERAPAMIL 2.5MG/ML INJ 2ML VIAL IV ONE (16:37)
[2023-10-23] MEDS: TAMSULOSIN HYDROCHLORIDE 0.4 MG CAP PO SCH (17:35)
[2023-10-23] MEDS: ATORVASTATIN 20 MG TAB PO SCH (22:09)
[2023-10-24] MEDS: HYDROcodone-ACET 5/325MG TAB PO PRN (03:04)
[2023-10-24 05:00] VITALS: BP 140/80; PULSE 76; RESP 20; TEMP 98.4; O2SAT 96
[2023-10-24] MEDS: ACCU-CHEK COMFORT CURVE STRIP VI SCH ×2 (06:13→12:57)
[2023-10-24] MEDS: InsuLIN REG 1unit/0.01ml Soln (100units/ml) SC SCH ×2 (06:14→12:57)
[2023-10-24 08:00] VITALS: PULSE 69; RESP 18; O2SAT 94
[2023-10-24 09:00] VITALS: BP 147/76; PULSE 69; RESP 18; TEMP 97.6; O2SAT 96
[2023-10-24 09:04] LABS: Chloride 102 mmol/L (98-107); Potassium 4.5 mmol/L (3.5-5.1); Sodium 135 mmol/L (136-145)
[2023-10-24 09:05] LABS: Anion Gap 4 (5-15); Carbon Dioxide 29 mmol/L (20-30)
[2023-10-24 09:06] LABS: Calcium 8.8 mg/dL (8.5-10.1)
[2023-10-24 09:10] LABS: BUN/Creatinine Ratio 18.2 (10.0-20.0); Blood Urea Nitrogen 43 mg/dL (9-23); Glucose 211 mg/dL (74-106)
[2023-10-24] MEDS: cefTRIAXone 1GM/50ML D5W 50 ML IV SCH (09:40)
[2023-10-24] MEDS: CARVEDILOL 12.5 MG TAB PO SCH (09:40)
[2023-10-24] MEDS: ASPirin 81 mg TAB PO SCH (09:40)
[2023-10-24] MEDS: HEPARIN SODIUM (PORCINE) 5000 UNITS/ML 1ML VIAL SC SCH (09:41)
[2023-10-24] MEDS ORDERED: CAR125T PO (12:25)
[2023-10-24] MEDS ORDERED: FURO1TAB31 PO (12:25)
[2023-10-24] MEDS ORDERED: ASPI-325 PO (12:25)
[2023-10-24 13:42] VITALS: BP 128/79; PULSE 68
== END 2023-10-24 15:20 | disposition home or self-care (01) | DRG 286 ==
LOC: ER 17:08 → EDBD 17:08 → TELE 20:23 → TELE-EAST 10-20 08:55
PROVIDERS: ADMIT Nurse Practitioner Family; ATTEND Nurse Practitioner Family
PROC: 5A09357 Assistance with Respiratory Ventilation, Less than 24 Consecutive Hours, Continuous Positive Airway Pressure (ICD-10-PCS; 2023-10-19)
PROC: 4A023N7 Measurement of Cardiac Sampling and Pressure, Left Heart, Percutaneous Approach (ICD-10-PCS; principal; 2023-10-23)
PROC: B211YZZ Fluoroscopy of Multiple Coronary Arteries using Other Contrast (ICD-10-PCS; 2023-10-23)
PROC: B215YZZ Fluoroscopy of Left Heart using Other Contrast (ICD-10-PCS; 2023-10-23)
DX: I13.0 Hypertensive heart and chronic kidney disease with heart failure and stage 1 through stage 4 chronic kidney disease, or unspecified chronic kidney disease (principal); I50.43 Acute on chronic combined systolic (congestive) and diastolic (congestive) heart failure; J96.01 Acute respiratory failure with hypoxia; N17.9 Acute kidney failure, unspecified; I42.8 Other cardiomyopathies; N18.9 Chronic kidney disease, unspecified; E66.01 Morbid (severe) obesity due to excess calories; E78.5 Hyperlipidemia, unspecified; G47.30 Sleep apnea, unspecified; E11.22 Type 2 diabetes mellitus with diabetic chronic kidney disease; I25.10 Atherosclerotic heart disease of native coronary artery without angina pectoris; R34 Anuria and oliguria; Z20.822 Contact with and (suspected) exposure to COVID-19; I16.0 Hypertensive urgency; N40.1 Benign prostatic hyperplasia with lower urinary tract symptoms; R33.8 Other retention of urine; Z68.32 Body mass index [BMI] 32.0-32.9, adult; Z79.4 Long term (current) use of insulin; Z90.49 Acquired absence of other specified parts of digestive tract; E11.65 Type 2 diabetes mellitus with hyperglycemia; J20.9 Acute bronchitis, unspecified; Z79.84 Long term (current) use of oral hypoglycemic drugs; N32.0 Bladder-neck obstruction
CPT/HCPCS: 36415; 36600; 71045; 76775; 78452; 78582; 80048; 80053; 80061; 80202; 80307; 81001; 82306; 82565; 82570; 82805; 82962; 83036; 83605; 83690; 83735; 83880; 83970; 84100; 84156; 84300; 84484; 85025; 85379; 87040; 87426; 87804; 93005; 93017; 93306; 93458; 93970; 94660; 99152; G0378; J0153; J0696; J1815; J2250; J7060

== ENCOUNTER 2023-11-09 05:23 | Emergency (ER) | payer OTHER, MEDICAID ==
[~2023-11-09] VITALS: Ht 165.1 cm; Wt 91.8 kg
[~2023-11-09 05:23] MED LIST changes: -AMLO1TAB23 PO; +ASPI-325 PO; +ATOR20TA50 PO; -AZIT-43 PO; -AZIT1POW PO; +BRIM0.2S17 EACHEYE; +CAR125T PO; -CLIN300C70 PO; +FURO1TAB31 PO; +LATA0.008 EACHEYE; -LISI40TA16; -METF-372 PO; +TAMS0.4C36 PO
[2023-11-09 05:50] VITALS: BP 137/64; PULSE 70; RESP 18; O2SAT 95
[2023-11-09 07:05] LABS: Urine Bacteria MANY /hpf (None Seen); Urine Blood 3+ /uL (Negative); Urine Clarity HAZY (Clear); Urine Color Yellow (Yellow); Urine Mucus FEW (None Seen); Urine Protein, UAD 3+ (Negative); Urine Specific Gravity 1.021 (1.001-1.035); Urine Sperm PRESENT /hpf (None Seen); Urine Urobilinogen Normal (Negative); Urine WBC 79 /hpf (0 - 3)
[2023-11-09] MEDS ORDERED: CIPR-173 PO (07:14)
== END 2023-11-09 07:16 | disposition home or self-care (01) ==
LOC: ER 05:23
DX: N39.0 Urinary tract infection, site not specified (principal); E11.9 Type 2 diabetes mellitus without complications; E78.5 Hyperlipidemia, unspecified; I10 Essential (primary) hypertension; Z46.6 Encounter for fitting and adjustment of urinary device; Z90.49 Acquired absence of other specified parts of digestive tract
CPT/HCPCS: 81001